=== PATIENT | male | born 1990 | race Caucasian/White ===

== ENCOUNTER 2024-11-07 12:35 | Emergency (ER) | payer OTHER ==
[~2024-11-07] VITALS: Ht 177.8 cm; Wt 70.4 kg
[2024-11-07] MEDS: PANTOPRAZOLE 40MG VIAL IV ONE (14:14)
[2024-11-07] MEDS: SUCRALFATE 1 GM TAB PO ONE (14:14)
[2024-11-07] MEDS: FAMOTIDINE 20MG/2ML VIAL IVP ONE (14:14)
[2024-11-07] MEDS: ONDANSETRON 4MG 2ML VIAL IV ONE (14:14)
[2024-11-07 14:26] LABS: BASO % 0.3 % (0.0-1.0); LYMPH # 0.7 10^3/uL (1.5-5.0); MEAN CORPUSCULAR HEMOGLOBIN 28.4 pg (27.0-33.0); MEAN CORPUSCULAR HGB CONC 33.3 g/dl (32.0-36.5); MEAN CORPUSCULAR VOLUME 85.3 fl (80.0-96.0); MONO # 0.9 10^3/uL (0.0-0.8); MONO % 6.2 % (2.0-8.0); PLATELET COUNT, AUTOMATED 263 10^3/uL (150-450); RED BLOOD COUNT 4.57 10^6/uL (4.30-6.10); WHITE BLOOD COUNT 14.7 10^3/uL (4.0-10.0)
[2024-11-07 14:41] LABS: INR 1.01; PARTIAL THROMBOPLASTIN TIME 32.2 SECONDS (24.8-34.2); PROTHROMBIN TIME 13.6 SECONDS (12.5-14.5)
[2024-11-07 15:27] LABS: LIPASE 26 U/L (12-53)
[2024-11-07 15:31] LABS: ALBUMIN 3.7 G/DL (3.2-5.2); ALKALINE PHOSPHATASE 81 U/L (40-129); ALT/SGPT 24 U/L (7.0-40); AST/SGOT 21 U/L (<34); BILIRUBIN,DIRECT 0.3 MG/DL (<0.4); BILIRUBIN,TOTAL 0.9 MG/DL (0.3-1.2); BLOOD UREA NITROGEN 12 MG/DL (9-23); CALCIUM LEVEL 9.1 MG/DL (8.5-10.1); CARBON DIOXIDE LEVEL 26 MMOL/L (20-31); CHLORIDE LEVEL 104 MMOL/L (98-107); GLOMERULAR FILTRATION RATE > 60.0 (>60); GLUCOSE, FASTING 92 MG/DL (60-100); POTASSIUM SERUM 3.9 MMOL/L (3.5-5.1); SODIUM LEVEL 138 MMOL/L (136-145); TOTAL PROTEIN 7.5 G/DL (5.7-8.2)
[2024-11-07] MEDS ORDERED: PROT1TAB2 PO (15:52)
[2024-11-07] MEDS ORDERED: ONDA-282 PO (15:52)
[2024-11-07] MEDS ORDERED: CARA1TAB6 PO (15:52)
[2024-11-07 16:27] VITALS: BP 111/64; TEMP 97.4; O2SAT 97
== END 2024-11-07 16:29 | disposition home or self-care (01) ==
LOC: M ED 12:35
DX: R10.13 Epigastric pain (principal); F17.290 Nicotine dependence, other tobacco product, uncomplicated
CPT/HCPCS: 80048; 80076; 83605; 83690; 85025; 85610; 85730; 86850; 86900; 86901; 96374; 96375; 99284; J2405; J2470; S0028